=== PATIENT | male | born 1955 | race Caucasian/White ===

== ENCOUNTER 2021-12-08 09:52 | Emergency (ER) | payer MEDICARE, MEDICAID ==
[2021-12-08] MEDS ORDERED: diphenhydrAMINE 50 MG/ML VIAL ONE (11:51)
[2021-12-08] MEDS ORDERED: Metoclopramide HCl 10 MG/2 ML VIAL ONE (11:52)
[2021-12-08] MEDS ORDERED: Morphine 4 MG/ML VIAL ONE (14:43)
[2021-12-08] MEDS ORDERED: Morphine 2 MG/ML VIAL ONE (15:36)
== END 2021-12-08 15:45 | disposition home or self-care (01) ==
LOC: CSHERS 09:52
DX: R51.9 Headache, unspecified (principal); E11.9 Type 2 diabetes mellitus without complications
CPT/HCPCS: 96374; 96375; 96376; J1200; J2270; J2765

== ENCOUNTER 2021-12-25 19:16 | Emergency (ER) | payer MEDICARE, MEDICAID ==
[2021-12-25] MEDS ORDERED: Acetaminophen 500 MG TAB ONE (20:17)
[2021-12-25] MEDS ORDERED: Ketorolac Tromethamine 30 MG/ML VIAL ONE (20:18)
[2021-12-25] MEDS ORDERED: Magnesium 2 GM/50 ML BAG (IN WATER) ONE (20:18)
[2021-12-25] MEDS ORDERED: SUMAtriptan Succinate 6 MG/0.5 ML VIAL ONE (21:39)
[2021-12-25] MEDS ORDERED: methylPREDNISolone Sod Succ/PF 125 MG/2 ML VIAL ONE (21:39)
[2021-12-25] MEDS ORDERED: SODIUM BENZOATE IVPB SCH (22:00)
[2021-12-25] MEDS ORDERED: SODIUM CHLORIDE 0.9% IVPB SCH (22:00)
[2021-12-25] MEDS ORDERED: CAFFEINE IVPB SCH (22:00)
== END 2021-12-25 22:05 | disposition home or self-care (01) ==
LOC: CSHERS 19:16
DX: G43.909 Migraine, unspecified, not intractable, without status migrainosus (principal); E11.9 Type 2 diabetes mellitus without complications; Z79.899 Other long term (current) drug therapy
CPT/HCPCS: 96365; 96375; J0706; J1885; J2930; J3030; J3475; J7050

== ENCOUNTER 2021-12-27 09:57 | Emergency (ER) | payer MEDICARE, MEDICAID ==
[2021-12-27] MEDS ORDERED: diphenhydrAMINE 50 MG/ML VIAL ONE (11:39)
[2021-12-27] MEDS ORDERED: Dexamethasone 10 MG/ML VIAL ONE (11:39)
[2021-12-27] MEDS ORDERED: Ketamine 50 MG/ML (10ML VIAL) ONE (11:40)
== END 2021-12-27 13:26 | disposition home or self-care (01) ==
LOC: CSHERS 09:57
DX: G43.909 Migraine, unspecified, not intractable, without status migrainosus (principal); E11.9 Type 2 diabetes mellitus without complications
CPT/HCPCS: 96374; 96375; J1100; J1200